=== PATIENT | male | born 1980 | race Hispanic/Latino ===

== ENCOUNTER 2025-05-01 06:44 | Day surgery (SDC) | payer OTHER ==
[2025-04-28 09:51] LABS: BASOPHILS # (AUTO) 0.08 K/uL (0.00-0.20); BASOPHILS % (AUTO) 0.8 % (0.0-5.0); EOSINOPHILS # (AUTO) 0.26 K/uL (0.00-0.70); EOSINOPHILS % (AUTO) 2.5 % (0.0-8.0); IMMATURE GRANULOCYTE ABSOLUTE 0.05 K/uL (0-1); LYMPHOCYTES # (AUTO) 3.1 K/uL (1.0-4.8); LYMPHOCYTES % (AUTO) 30.5 % (21.0-51.0); MEAN CORPUSCULAR HEMOGLOBIN 31.6 pg (27.0-33.0); MEAN CORPUSCULAR HGB CONC 34.9 g/dL (32.0-36.0); MEAN CORPUSCULAR VOLUME 90.7 fL (79-99); MONOCYTES # (AUTO) 0.6 K/uL (0.1-1.0); MONOCYTES % (AUTO) 5.5 % (3.0-13.0); NEUTROPHILS # (AUTO) 6.2 K/uL (1.8-7.7); NEUTROPHILS % (AUTO) 60.2 % (40.0-77.0); PLATELET COUNT (AUTO) 264 K/uL (130-400); RED BLOOD CELL COUNT(AUTO) 4.74 MIL/uL (4.50-6.20); RED CELL DISTRIBUTION WIDTH 11.9 % (11.0-15.5); WHITE BLOOD COUNT (AUTO) 10.3 K/uL (4.8-10.8)
[2025-04-28 10:03] LABS: CREATININE 1.2 mg/dL (0.5-1.3); POTASSIUM 3.7 mmol/L (3.5-5.1)
[2025-04-28 10:04] LABS: INR 1.03 (0.85-1.15); PROTHROMBIN TIME 10.9 SEC (9.6-11.6)
[2025-04-28 10:06] LABS: PARTIAL THROMBOPLASTIN TIME 26.6 SEC (26.3-35.5)
[2025-04-28 10:10] VITALS: BP 146/90; PULSE 88; RESP 17; TEMP 97.8
[2025-05-01] VITALS (17 sets, daily range): BP systolic 126–149; BP diastolic 82–100; PULSE 75–92; RESP 15–20; TEMP 97.1–97.7
[~2025-05-01] VITALS: Ht 170.2 cm; Wt 118.2 kg
[2025-05-01] MEDS ORDERED: ceFAZolin SODIUM 1 GM VIAL ONE (07:11)
[2025-05-01] MEDS ORDERED: ceFAZolin SODIUM 2 GM VIAL ONE (07:11)
[2025-05-01] MEDS ORDERED: BUPIvacaine/PF 0.25% 30ML VIAL IJ ONE (07:27)
[2025-05-01] MEDS ORDERED: acetaMINOPHEN 100 ML ONE (07:27)
[2025-05-01] MEDS ORDERED: FAMOTIDINE 20MG VIAL IV ONE (07:27)
[2025-05-01] MEDS ORDERED: LIDOCAINE PF 100MG/5ML (2%) SYRINGE 5ML ONE (07:30)
[2025-05-01] MEDS ORDERED: MIDAZOLAM HCL 1 MG/ML 2ML VIAL ONE (07:30)
[2025-05-01] MEDS ORDERED: FENTanyl CITRate PF 50 MCG/1 ML 2ML VIAL ONE (07:30)
[2025-05-01] MEDS ORDERED: proPOFol 10 MG/ML 20ML VIAL IV ONE (07:30)
[2025-05-01] MEDS ORDERED: rocuRONium bROMide 10MG/1ML 5ML VL ONE (07:30)
[2025-05-01] MEDS ORDERED: ondanSETRON 4MG INJ ONE (08:09)
[2025-05-01] MEDS ORDERED: dexaMETHasone SOD PHOSPHATE 4 MG/ML 1ML VIAL ONE (08:09)
[2025-05-01] MEDS ORDERED: GLYCOPYRROLATE 0.2 MG/ML 5 ML VIAL ONE (08:11)
[2025-05-01] MEDS ORDERED: NEOSTIGMINE METHYLSULFATE 1MG/ML IV ONE (08:11)
[2025-05-01] MEDS: BUPIvacaine/PF 0.25% 30ML VIAL IJ ONE (08:14)
[2025-05-01] MEDS ORDERED: ketOROlac 30MG VIAL (30MG/ML) ONE (08:24)
--- NOTE | 2025-05-01 08:43 | OP ---
Operative Note: DATE OF PROCEDURE: 05/01/25 SURGEON: KELLY ARNOLD MD [employer]S RECRUITER: [] ANESTHESIA: [] General ANESTHESIOLOGIST/GLASS TECHNICIAN: [] PREOPERATIVE DIAGNOSIS: [] Umbilical hernia POSTOPERATIVE DIAGNOSIS: [] The same SYNOPSIS: [] PROCEDURE: [] Open repair of umbilical hernia ESTIMATED BLOOD LOSS: [] Minimal INDICATIONS: [] DESCRIPTION OF PROCEDURE: [] With the patient general anesthesia with a supraumbilical incision over the umbilicus. Using cautery and blunt dissection was able to identify an incarcerated hernia. The sac was opened and a small piece of omentum was retrieved. I found a defect that was less than 2 cm and I decided to close it without a mesh with the interrupted 0 Prolene sutures. After this was done and adequate anesthesia I reimplanted the umbilicus to the fascia with 2-0 Vicryl. The skin was closed with 4-0 Monocryl. We placed 20 cc of local anesthesia. A binder was placed and the patient was sent home. KELLY ARNOLD MD May 01, 2025 08:43
[2025-05-01] MEDS: morPHINE 2 MG SYG ONE (09:01)
--- NOTE | 2025-05-01 10:10 | NUR ---
Full and complete discharge instructions given to Patient and Family both verbally and in writing. Explained Surgical procedure precautions and follow up. Umbilical open incision site site clean dry and intact. Abdominal binder intact. No evidence of bleeding, bruising or hematoma. All questions answered. PIV removed with catheter tip intact. at bedside appearing supportive. W/C to POV with to home
== END 2025-05-01 10:11 | disposition home or self-care (01) ==
LOC: DAH 06:44
PROVIDERS: ATTEND Surgery
DX: K42.0 Umbilical hernia with obstruction, without gangrene (principal); E78.5 Hyperlipidemia, unspecified; Z87.898 Personal history of other specified conditions; Z98.890 Other specified postprocedural states; Z80.9 Family history of malignant neoplasm, unspecified; Z87.891 Personal history of nicotine dependence; Z79.899 Other long term (current) drug therapy; Z79.01 Long term (current) use of anticoagulants
CPT/HCPCS: 80048; 85025; 85610; 85730; 36415; 49592; A6260; J1100; J1885; A4663; J7120; J3490 ×3; J3010; J2270; J0665 ×2; J2003; J2250; J2704; J2405; J2710; J0690; A4930; A4215; A4213; A4222; A4221; A4216; A4450; A4223 ×2